=== PATIENT | female | born 1995 | race Caucasian/White ===

== ENCOUNTER → 2017-01-01 | Day surgery (SDC) | payer OTHER ==
[~2017-01-01] VITALS: Ht 162.6 cm; Wt 63.5 kg
[~2017-01-01] MED LIST: AMITRIPTYLINE H10 M2; AMITRIPTYLINE H10 M2 PO; CLARITIN10 M1 PO; EPIPEN JR0.15 MG/01 IM; FLOMAX0.4 M1 PO; LO LOESTRIN FE1 EACH PO; MEDROL4 M2 PO; MOTRIN 600 MG600 MG PO; NEXPLANON68 M1; PHENERGAN12.5 M1 PO; TRAMADOL HCL50 M1 PO; VESICARE10 MG PO; ZOFRAN4 M1 SL; ZYRTEC10 M3 PO
--- NOTE | 2017-01-01 13:18 | Operative Report ---
Operative/Inv Procedure Report Surgery Date: 01/01/17 Name of Procedure: interstim stage 1 and 2 Pre-Operative Diagnosis: bladder pain, urinary retention and frequency Post-Operative Diagnosis: same Estimated Blood Loss: less than 50ml Surgeon/Watch Train Assembler: CELSO PAUL MD Anesthesia: local monitored anesthesi Implants: interstim battery and lead Complications: none Condition: stable Operative Indication: bladder pain, retention and frequency Operative/Procedure Note Note: 21yo female with a history of bladder pain, retention and frequency. She has had conservative therapy with meds and bladder infusions without improvement. She had the interstim percutaneous trial and did very well. She was given the risks, benefits and alternatives of the procedure. All questions were answered. Patient was brought to the operating room and placed in the prone position. A timeout was performed and IV antibiotics were infused. She was given IV sedation and kept light to respond to my communication with her. She was prepped and draped in the standard sterile fashion with chloraprep. The flouroscopy was draped sterilely as well. The interstim procedure was started with the needle placement after her anatomy was marked out for optimal placement to localize S3. The needle was optimized with good vaginal and great toe response on her right side. Also checked the left side but better on the right side. The guidewire was placed through the hollow bore needle and then the dilator. Flouroscopy was used throughout the case to determine the location of the needle and lead. It was seen to be in good position and she had good motor and sensory response in her great toe and vagina. The lead was then tunnelled to the right side of her buttock where a pocket had been created. The battery was connected to the lead and then placed into the pocket site. The battery was checked to see if it was in working order and it was without issue. The incision was closed using 3-0 vicryl interrupted sutures in the sbucutaneous layer followed by 4-0 monocryl in the subcuticular layer in a running fashion. The lead site was closed with monocryl and then dermabond. The needle and sponge count was correct. Patient was transferred to the recovery room in stable condition. Findings: Good sensory and motor reponse Discharge Disposition: Same Day Admissions
--- NOTE | 2017-01-02 18:06 | RADIOLOGY REPORT ---
EXAMINATION: Fluoroscopic assistance at the time of the InterStim Implant stage I in 2. CLINICAL INFORMATION: 21-year-old female for InterStim implant placement. COMPARISON: None TECHNIQUE: Multiple spot radiographs were obtained at the time of the procedure in the wall. Total fluoroscopy time used was 0.6 minutes. Full procedural detail will be dictated by Dr. Escobar. IMPRESSION: Multiple spot radiographs were obtained at the time of the InterStim Implant placement, the full details of which will be dictated by Dr. Lockhart.
== END ==
LOC: STS 04:20
DX: R35.0 Frequency of micturition (principal); N30.11 Interstitial cystitis (chronic) with hematuria; R33.8 Other retention of urine; R39.89 Other symptoms and signs involving the genitourinary system
CPT/HCPCS: 72100; 81025; C1767; C1778; C1787; C1894; J0690; J2250